=== PATIENT | female | born 2000 | race Caucasian/White ===

== ENCOUNTER 2019-03-25 09:53 | Emergency (ER) | payer SELFPAY ==
[2019-03-25 10:08] VITALS: BP 121/71; PULSE 99; TEMP 98.2; BMI 29.2
[2019-03-25] MEDS ORDERED: ALBUTEROL SO4 2.5/IPRATROPIUM 0.5 INH SOL 3 ML VIAL.NEB. NEB ONE ×2 (10:38→11:08)
--- NOTE | 2019-03-25 10:39 | PDOC ---
History of Present Illness - General Chief Complaint: Cold Symptoms Stated Complaint: COLD SYMPTOMS Time Seen by Provider: 03/25/19 10:19 History Source: Patient Exam Limitations: Clinical Condition - History of Present Illness Initial Comments: 03/25/19 10:36 Patient with history of asthma presented with complaint of 1 month history of persistent nasal congestion, runny nose and now with 2 weeks history of persistent cough with intermittent chest tightness and shortness of breath. Denies any shortness of breath chest tightness now. Patient reported having fever a month ago but no fever for the past 2 weeks. Denies recent travel or sick contacts. Patient reported taking [id number] medication without improvement. Denies dizziness, shortness of breath, chest pain, palpitation. Denies any other symptoms Is this a multiple visit Asthma Patient?: No Timing/Duration: other (1 month) Past History - Past Medical History Allergies/Adverse Reactions: Allergies Allergy/AdvReac Type Severity Reaction Status Date / Time guaifenesin [From Robitussin] Allergy Verified 03/25/19 10:04 Home Medications: Ambulatory Orders No Home Medications 0 dose .ROUTE UTDICT 03/29/13 Benzonatate [Tessalon Pearls -] 100 mg PO TID PRN #21 capsule 03/25/19 Ipratropium Niles 2 spray NS BID PRN #1 spray 03/25/19 Methylprednisolone [Medrol Dose Lucius] 4 mg PO ASDIR #21 tablet 03/25/19 Montelukast Na [Singulair -] 10 mg PO DAILY #7 tablet 03/25/19 COPD: No - Psycho Social/Smoking Cessation Hx Smoking Status: No Smoking History: Never smoked Number of Cigarettes Smoked Daily: 0 Hx Alcohol Use: No Substance Use Type: None Review of Systems - Review of Systems Able to Perform ROS?: Yes Is the patient limited Spanish proficient: No Constitutional: No: Chills, Fever, Malaise HEENTM: Yes: Symptoms Reported, See HPI, Nose Congestion. No: Eye Pain, Blurred Vision, Tearing, Recent change in vision, Double Vision, Cataracts, Ear Pain, Ocular Prothesis, Ear Discharge, Nose Pain, Tinnitus, Nose Bleeding, Hearing Loss, Throat Pain, Throat Swelling, Mouth Pain, Dental Problems, Difficulty Swallowing, Mouth Swelling, Other Respiratory: Yes: Symptoms reported, See HPI, Cough. No: Orthopnea, Shortness of Breath, SOB with Exertion, SOB at Rest, Stridor, Wheezing, Productive cough, Hemoptysis, Other Cardiac (ROS): No: Symptoms Reported, See HPI, Chest Pain, Edema, Irregular Heart Rate, Lightheadedness, Palpitations, Syncope, Chest Tightness, Other ABD/GI: No: Symptoms Reported, Nausea, Vomiting Musculoskeletal: No: Symptoms Reported Integumentary: No: Symptoms Reported, Rash All Other Systems: Reviewed and Negative *Physical Exam - Vital Signs Last Vital Signs Temp Pulse Resp BP Pulse Ox 98.2 F 99 H 20 121/71 98 03/25/19 10:05 03/25/19 10:05 03/25/19 10:05 03/25/19 10:05 03/25/19 10:05 - Physical Exam 03/25/19 10:38 GENERAL: Well developed, well nourished. Awake and alert. No acute distress. HEENT: Bilateral nasal congestion. Normocephalic, atraumatic. PERRLA, EOMI. No conjunctival pallor. Sclera are non-icteric. Moist mucous membranes. Oropharynx is clear. NECK: Supple. Full ROM. CARDIOVASCULAR: Regular rate and rhythm. No murmurs, rubs, or gallops. Distal pulses are 2+ and symmetric. PULMONARY: No evidence of respiratory distress. Lungs clear to auscultation bilaterally. No wheezing, rales or rhonchi. ABDOMINAL: Soft. Non-tender. Non-distended. No rebound or guarding. No organomegaly. Normoactive bowel sounds. MUSCULOSKELETAL Normal range of motion at all joints. SKIN: Warm and dry. Normal capillary refill. No rashes. No cyanosis. NEUROLOGICAL: Alert, awake, appropriate. Gait is normal without ataxia. PSYCHIATRIC: Cooperative. Good eye contact. Appropriate mood General Appearance: Yes: Nourished, Appropriately Dressed. No: Apparent Distress ED Treatment Course - RADIOLOGY Radiology Studies Ordered: Category Date Time Status CHEST PA & LAT [RAD] Stat Radiology 03/25/19 10:26 Ordered Medical Decision Making - Medical Decision Making 03/25/19 10:37 Patient with history of asthma presented with complaint of 1 month history of persistent nasal congestion, runny nose and now with 2 weeks history of persistent cough with intermittent chest tightness and shortness of breath. Denies any shortness of breath chest tightness now. Patient reported having fever a month ago but no fever for the past 2 weeks. Denies recent travel or sick contacts. Patient reported taking [id number] medication without improvement. Denies dizziness, shortness of breath, chest pain, palpitation. Denies any other symptoms Exam significant for patient coughing to her exam with no acute respiratory distress. Lungs clear to auscultation bilateral and normal cardiac exam. Bilateral nasal congestion on exam. Patient afebrile. Symptoms likely viral URI versus less likely pneumonia. X-ray of the chest ordered to rule out pneumonia. DuoNeb treatment ordered for cough 03/25/19 11:01 Checks x-ray shows no acute infiltrative pathology. Patient symptoms likely viral URI and stable for outpatient management on Medrol Lucius and Tessalon Perles for cough work with spasm with Atrovent nasal spray singular for nasal congestion with advised to increase fluid intake and follow-up with PCP. Patient stable for discharge Discharge - Discharge Information Problems reviewed: Yes Clinical Impression/Diagnosis: Cough in adult patient, Nasal sinus congestion URI (upper respiratory infection) Qualifiers: URI type: unspecified URI Qualified Code(s): J06.9 - Acute upper respiratory infection, unspecified Condition: Stable Disposition: HOME - Admission No - Additional Discharge Information Prescriptions: Benzonatate [Tessalon Pearls -] 100 mg PO TID PRN #21 capsule PRN Reason: Cough Ipratropium Niles 2 spray NS BID PRN #1 spray PRN Reason: nasal congestion Methylprednisolone [Medrol Dose Lucius] 4 mg PO ASDIR #21 tablet Montelukast Na [Singulair -] 10 mg PO DAILY #7 tablet - Follow up/Referral - Patient Discharge Instructions Patient Printed Discharge Instructions: DI for Viral Upper Respiratory Infection -- Adult Additional Instructions: Chest x-ray shows no pneumonia or acute bronchitis. Symptoms likely caused by a viral upper respiratory infection. Take prescribed medication as prescribed for symptoms. Increase fluid intake. Follow-up with PCP - Post Discharge Activity
== END 2019-03-25 11:28 | disposition home or self-care (01) ==
LOC: JERFT 09:53
PROC: 3E0F7GC Introduction of Other Therapeutic Substance into Respiratory Tract, Via Natural or Artificial Opening (ICD-10-PCS; principal; 2019-03-25)
DX: J06.9 Acute upper respiratory infection, unspecified (principal); Z88.8 Allergy status to other drugs, medicaments and biological substances
CPT/HCPCS: 71046-TC-FY; 99281-25

== ENCOUNTER 2020-03-04 22:12 | Inpatient (IN) | payer OTHER ==
[2020-03-04 22:18] VITALS: BMI 30.2
[2020-03-04] MEDS ORDERED: ALBUTEROL SO4 HFA INHALER IH ONE (22:32)
[2020-03-04] MEDS ORDERED: DEXAMETHASONE SOD PHOSPHATE 10 MG/1 ML VIAL IVPUSH ONE (22:37)
[2020-03-04] MEDS ORDERED: DEXAMETHASONE SOD PHOSPHATE 10 MG/1 ML VIAL ONE (22:47)
[2020-03-04 23:38] LABS: BASO % 0.2 % (0-2.0); HEMATOCRIT 40.3 % (32.4-45.2); HEMOGLOBIN 13.2 GM/dL (10.7-15.3); LYMPH % 19.6 % (8-40); MCH 26.2 pg (25.7-33.7); MCHC 32.8 g/dl (32.0-36.0); MEAN CELL VOLUME 79.8 fl (80-96); MONO % 5.4 % (3.8-10.2); NEUT % 69.8 % (42.8-82.8); PLATELET COUNT 376 K/MM3 (134-434); RBC 5.06 M/mm3 (3.60-5.2); RDW 13.4 % (11.6-15.6)
[2020-03-04 23:42] LABS: INR 0.92 (0.83-1.09); PROTHROMBIN TIME (PATIENT) 11.4 SEC (9.7-13.0)
[2020-03-04 23:44] LABS: ACTIVATED PTT 27.9 SECONDS (25.2-36.5)
[2020-03-04 23:59] LABS: POTASSIUM 4.3 mmol/L (3.5-5.1)
[2020-03-05 00:01] LABS: CALCIUM 9.1 mg/dL (8.5-10.1)
[2020-03-05 00:02] LABS: ALBUMIN 3.7 g/dl (3.4-5.0); BLOOD UREA NITROGEN 16.3 mg/dL (7-18)
[2020-03-05 00:05] LABS: CREATININE 0.8 mg/dL (0.55-1.3)
[2020-03-05 00:07] LABS: BILIRUBIN,TOTAL 0.3 mg/dL (0.2-1); TOT PROT 7.4 g/dl (6.4-8.2)
[2020-03-05] MEDS ORDERED: SODIUM CHLORIDE 0.9% 500 ML INFUS.BAG IV ONE (01:55)
[2020-03-05] MEDS ORDERED: PIPERACILLIN/TAZOB 4.5 GM 4.5 GM in DEXTROSE 5%-WATER 100 ML IVPB ONE (05:37)
[2020-03-05] MEDS ORDERED: PIPERACILLIN/TAZOB 4.5 GM 4.5 GM/100 ML BAG IVPB ONE (05:49)
[2020-03-05] MEDS ORDERED: ACETAMINOPHEN 325 MG TABLET (FP) PO PRN (07:22)
[2020-03-05] MEDS ORDERED: ALBUTEROL SO4 HFA INHALER IH PRN (07:25)
[2020-03-05] MEDS: SODIUM CHLORIDE 1,000 ML IV SCH ×2 (08:33→16:00)
[2020-03-05] MEDS ORDERED: AZITHROMYCIN IVPB 500 MG in DEXTROSE 5%-WATER - 250 ML IVPB ONE (10:00)
[2020-03-05 11:45] LABS: BASO % 0.1 % (0-2.0); HEMATOCRIT 40.7 % (32.4-45.2); HEMOGLOBIN 13.5 GM/dL (10.7-15.3); LYMPH % 14.2 % (8-40); MCH 26.8 pg (25.7-33.7); MCHC 33.3 g/dl (32.0-36.0); MEAN CELL VOLUME 80.5 fl (80-96); MEAN PLT VOLUME 7.5 fl (7.5-11.1); MONO % 2.7 % (3.8-10.2); PLATELET COUNT 443 K/MM3 (134-434); RBC 5.05 M/mm3 (3.60-5.2); RDW 13.3 % (11.6-15.6); WHITE BLOOD COUNT 10.7 K/mm3 (4.0-10.0)
[2020-03-05 12:04] LABS: POTASSIUM 3.8 mmol/L (3.5-5.1)
[2020-03-05 12:06] LABS: CALCIUM 9.4 mg/dL (8.5-10.1)
[2020-03-05 12:07] LABS: ALBUMIN 3.7 g/dl (3.4-5.0); MAGNESIUM 2.4 mg/dL (1.8-2.4)
[2020-03-05 12:10] LABS: CREATININE 0.7 mg/dL (0.55-1.3); PHOSPHOROUS 2.8 mg/dL (2.5-4.9)
[2020-03-05 12:12] LABS: BILIRUBIN,TOTAL 0.7 mg/dL (0.2-1); TOT PROT 7.4 g/dl (6.4-8.2)
[2020-03-05] MEDS: ENOXAPARIN NA (PORCINE) 40 MG/0.4 ML DISP.SYRIN SQ SCH (12:34)
[2020-03-05] MEDS: CEFTRIAXONE 1 GM in DEXTROSE 5%-WATER - 50 ML IVPB SCH (12:34)
[2020-03-05] MEDS: methylPREDNISolone NA SUCC 40 MG/1 ML VIAL IVPUSH SCH ×3 (12:34→20:20)
[2020-03-06] MEDS: SODIUM CHLORIDE 1,000 ML IV SCH ×2 (03:13→09:36)
[2020-03-06] MEDS: methylPREDNISolone NA SUCC 40 MG/1 ML VIAL IVPUSH SCH ×2 (03:13→09:36)
[2020-03-06 08:31] LABS: BASO % 0.1 % (0-2.0); HEMATOCRIT 40.1 % (32.4-45.2); HEMOGLOBIN 13.1 GM/dL (10.7-15.3); LYMPH % 10.5 % (8-40); MCH 26.4 pg (25.7-33.7); MCHC 32.6 g/dl (32.0-36.0); MEAN CELL VOLUME 80.9 fl (80-96); MEAN PLT VOLUME 7.5 fl (7.5-11.1); MONO % 2.1 % (3.8-10.2); NEUT % 87.3 % (42.8-82.8); PLATELET COUNT 470 K/MM3 (134-434); RBC 4.96 M/mm3 (3.60-5.2); RDW 13.5 % (11.6-15.6); WHITE BLOOD COUNT 19.9 K/mm3 (4.0-10.0)
[2020-03-06 09:09] LABS: POTASSIUM 3.6 mmol/L (3.5-5.1)
[2020-03-06 09:12] LABS: CALCIUM 9.1 mg/dL (8.5-10.1)
[2020-03-06 09:13] LABS: ALBUMIN 3.7 g/dl (3.4-5.0); BLOOD UREA NITROGEN 10.6 mg/dL (7-18); MAGNESIUM 2.7 mg/dL (1.8-2.4)
[2020-03-06 09:16] LABS: CREATININE 1.1 mg/dL (0.55-1.3); PHOSPHOROUS 3.4 mg/dL (2.5-4.9)
[2020-03-06 09:17] LABS: BILIRUBIN,TOTAL 0.7 mg/dL (0.2-1); TOT PROT 7.4 g/dl (6.4-8.2)
[2020-03-06 09:31] LABS: ERYTHROCYTE SEDIMENTATION RATE 40 mm/hr (0-20)
[2020-03-06] MEDS: ENOXAPARIN NA (PORCINE) 40 MG/0.4 ML DISP.SYRIN SQ SCH (09:36)
[2020-03-06] MEDS ORDERED: AZITHROMYCIN IVPB 250 MG in DEXTROSE 5%-WATER - 250 ML IVPB SCH (10:00)
[2020-03-06] MEDS: CEFTRIAXONE 1 GM in DEXTROSE 5%-WATER - 50 ML IVPB SCH (10:34)
[2020-03-06 13:58] VITALS: BP 133/64; PULSE 113; TEMP 98.1
[2020-03-06] MEDS: ALBUTEROL SO4 2.5/IPRATROPIUM 0.5 INH SOL 3 ML VIAL.NEB. NEB SCH ×2 (14:12→14:13)
[2020-03-06] MEDS ORDERED: methylPREDNISolone NA SUCC 40 MG/1 ML VIAL IVPUSH SCH (18:00)
[2020-03-06] MEDS ORDERED: DOXYCYCLINE INJECTION 100 MG in DEXTROSE 5%-WATER - 100 ML IVPB SCH (22:00)
[2020-03-07] MEDS ORDERED: AZITHROMYCIN IVPB 250 MG in DEXTROSE 5%-WATER - 250 ML IVPB SCH (10:00)
[2020-03-07] MEDS ORDERED: CEFTRIAXONE 1 GM in DEXTROSE 5%-WATER - 50 ML IVPB SCH (10:00)
== END 2020-03-06 20:30 | disposition home or self-care (01) | DRG 141 ==
LOC: JER 22:12 → JERBED 03-05 06:08 → J6WEST-2 03-05 10:22
PROVIDERS: ATTEND Internal Medicine
DX: J45.901 Unspecified asthma with (acute) exacerbation (principal); R05 Cough; J18.9 Pneumonia, unspecified organism; R06.02 Shortness of breath
CPT/HCPCS: 36415; 71045-TC-FY; 71275-TC; 80053; 82728; 83615; 83735; 84100; 84439; 84443; 84480; 84481; 84482; 84703; 85025; 85379; 85610; 85651; 85730; 86140; 87040; 87804; 87807; 87899; 93005; 93010; 94640; 99285-25; C9803; J1100; U0003

== ENCOUNTER 2021-05-04 12:09 | Emergency (ER) | payer OTHER ==
[2021-05-04 12:48] VITALS: BP 139/87; PULSE 114; TEMP 99.6; BMI 32.9
[2021-05-04] MEDS ORDERED: ALBUTEROL SO4 2.5/IPRATROPIUM 0.5 INH SOL 3 ML VIAL.NEB. NEB ONE ×2 (13:27→14:06)
[2021-05-04] MEDS ORDERED: DEXAMETHASONE LIQUID 0.5 MG/5 ML PO ONE (13:27)
[2021-05-04] MEDS ORDERED: DEXAMETHASONE SOD PHOSPHATE 10 MG/1 ML VIAL ONE (14:06)
== END 2021-05-04 16:43 | disposition home or self-care (01) ==
LOC: JER 12:09
PROC: 3E0F7GC Introduction of Other Therapeutic Substance into Respiratory Tract, Via Natural or Artificial Opening (ICD-10-PCS; principal; 2021-05-04)
DX: U07.1 COVID-19 (principal)
CPT/HCPCS: 94640; 99283-25

== ENCOUNTER 2023-12-26 23:12 | Emergency (ER) | payer OTHER ==
[2023-12-26 23:20] VITALS: BP 113/78; PULSE 94; RESP 18; TEMP 98.6; BMI 32.0
[2023-12-26] MEDS ORDERED: AZITHROMYCIN 500 MG TABLET ONE (23:55)
[2023-12-27] MEDS: AZITHROMYCIN 500 MG TABLET PO ONE (00:02)
== END 2023-12-27 00:03 | disposition home or self-care (01) ==
LOC: JER 23:12
DX: R19.7 Diarrhea, unspecified (principal)
CPT/HCPCS: 99283-25